=== PATIENT | male | born 1955 | race Caucasian/White ===

== ENCOUNTER 2016-06-25 06:49 | Day surgery (SDC) | payer OTHER ==
[2016-06-20 16:55] LABS: BASOPHILS 0.4 %; BASOPHILS ABSOLUTE 0.04 10/3/uL (0.0-0.16); EOSINOPHILS 2.6 %; EOSINOPHILS ABSOLUTE 0.29 10/3/uL (0.0-0.53); HEMATOCRIT 43.9 % (40.0-51.0); HEMOGLOBIN 15.1 g/dL (13.6-17.8); IMMATURE GRANULOCYTES 0.4 %; IMMATURE GRANULOCYTES ABSOLUTE 0.04 10/3/uL (0.0-0.11); LYMPHOCYTES 27.2 %; LYMPHOCYTES ABSOLUTE 2.99 10/3/uL (0.67-4.30); MEAN CORPUS HGB CONC 34.4 g/dL (32.0-36.0); MEAN CORPUSCULAR HEMOGLOB 29.4 pg (26.0-34.0); MEAN CORPUSCULAR VOLUME 85.6 fL (80-100); MEAN PLATELET VOLUME 10.5 fL (9.2-13.0); MONOCYTES 5.6 %; MONOCYTES ABSOLUTE 0.61 10/3/uL (0.21-1.20); NEUTROPHILS 63.8 %; NEUTROPHILS ABSOLUTE 7.01 10/3/uL (2.02-8.40); PLATELET COUNT 285 10/3/uL (150-400); RBC DISTRIBUTION WIDTH 13.5 % (12.0-16.0); RED CELL COUNT 5.13 10/6/uL (4.7-6.1)
[2016-06-20 17:00] LABS: MANUAL DIFF NO %
[2016-06-20 17:01] LABS: A/G RATIO 1.2 (0.7-1.9); ALBUMIN 4.2 G/DL (3.5-5.0); ALKALINE PHOSPHATASE 70 U/L (45-117); CALCIUM, SERUM 8.5 MG/DL (8.5-10.4); CHLORIDE, SERUM 105 MMOL/L (96-112); CO2 (CARBON DIOXIDE) 28 MMOL/L (24-34); CREATININE 0.93 MG/DL (0.70-1.30); GFR AFRICAN AMERICAN 104 ML/MIN (>=60); GFR NON AFRICAN AMERICAN 90 ML/MIN (>=60); POTASSIUM, SERUM 4.6 MMOL/L (3.5-5.3); SGOT(AST) 24 U/L (5-40); SGPT(ALT) 57 U/L (5-65); SODIUM, SERUM 141 MMOL/L (135-148); TOTAL BILIRUBIN 0.3 MG/DL (0-1.2); TOTAL PROTEIN 7.7 G/DL (6.0-8.5)
[2016-06-20 17:05] LABS: BUN (BLOOD UREA NITROGEN) 10 MG/DL (6-23); GLOBULIN 3.5 G/DL (2.5-4.1); GLUCOSE, SERUM 98 MG/DL (60-99)
--- NOTE | ~2016-06-25 | OP ---
Record Of Operation [facility] [address] [place]. [address] NAME: THANIA CARABALLO : 59 STATUS : [facility]#: [id number] AGE: 61 ADM/REG DATE : 06/25/16 MR#: [id number] REPORT SERV DATE: 06/25/16 DICTATED BY: MARKIE VO DATE: 06/25/16 REPORT STATUS : Draft TRANSCRIBED BY: MODL DATE: 06/25/16 DATE OF PROCEDURE: 06/25/2016 PREOPERATIVE DIAGNOSIS: Left hydrocele. POSTOPERATIVE DIAGNOSIS: Left hydrocele. OPERATIVE PROCEDURE: Left hydrocelectomy. ANESTHESIA: General inhalation. SURGEON: Dr. Vo. ESTIMATED BLOOD LOSS: About 15 to 20 mL. SPECIMENS: 1. Hydrocele sac. 2. Cath urine for culture and sensitivity. DRAINS: 1. A 1 #16 Coude Boone catheter. 2. [id number] Marcellus drains. IMMEDIATE POSTOP: Satisfactory. DESCRIPTION OF PROCEDURE: The patient was brought in to the surgery suite, given general inhalational anesthetic in the lithotomy position. Perineum and genitalia were prepped and draped in a sterile fashion. The patient was placed on the operating table in supine position. Scrotum and penis were prepped and draped in a sterile fashion. A #16 Coude Boone catheter was passed per urethra into the bladder. A specimen of balloon inflated specimen of clear yellow urine was obtained and submitted to culture and sensitivity. The catheter was attached to drainage bag. At this point, a left hemiscrotal incision was made from superior to inferior. The incision was carried down with Bovie cautery through the scrotal wall. The hydrocele sac and spermatic cord were then dissected free from the scrotum using a combination of blunt and sharp dissection. Bovie cautery were indicated. Hemostasis within the scrotal wall was obtained with electrocautery. Hydrocele sac was then opened and drained of about 600 mL clear yellow fluid. The sac was then opened along its long axis. Testicle was inspected and noted to be viable without any abnormalities. Excess hydrocele sac was then removed using the Bovie cautery. The redundant sac was then "bottle necked" and the posterior portion of the spermatic cord sutured loosely into place in that position so as not to compromise the spermatic cord. The spermatic cord was then infiltrated with about 8 mL of 0.25% Marcaine without epinephrine. The scrotum was then copiously irrigated as was the spermatic cord and testis. Hemostasis was satisfactory. At this point, 2 [id number] Marcellus drains were brought out through a dependent stab incision of the left scrotal wall. These were sutured into place usually loosely with a 2-0 silk suture. Testis and spermatic cord were then placed back and the left hemiscrotum in Record Of Operation [address] [address] NAME: CARABALLOTHANIA Canela : 59 STATUS : [facility] PAT#: [id number] AGE: 61 ADM/REG DATE : 06/25/16 MR#: [id number] REPORT SERV DATE: 06/25/16 DICTATED BY: MARKIE VO DATE: 06/25/16 REPORT STATUS : Draft TRANSCRIBED BY: LASHAY DATE: 06/25/16 normal anatomic position. The wound was closed in layers. Sponge and instrument counts were correct, and the patient was, at this point, awaken and sent to recovery room in satisfactory condition. MS/LASHAY Markie Vo M.D. / [id number] CC: Marysol Hobson NP
[~2016-06-25 06:49] MED LIST: AMIT50 PO; ATEN25 PO; GLUCPH PO; NORV10 PO; PRAVACHOL40 MG PO; PRIN20 PO; TRICOR145 PO; Z300 PO
== END 2016-06-25 14:34 | disposition home or self-care (01) ==
LOC: SDC 06:49
PROVIDERS: Urology
PROC: 0VB70ZZ Excision of Left Tunica Vaginalis, Open Approach (ICD-10-PCS; principal; 2016-06-25 08:45)
DX: N43.3 Hydrocele, unspecified (principal); I10 Essential (primary) hypertension; M19.90 Unspecified osteoarthritis, unspecified site; M10.9 Gout, unspecified; E11.9 Type 2 diabetes mellitus without complications; E66.01 Morbid (severe) obesity due to excess calories; Z68.39 Body mass index [BMI] 39.0-39.9, adult; Z79.84 Long term (current) use of oral hypoglycemic drugs; Z79.899 Other long term (current) drug therapy; Z86.12 Personal history of poliomyelitis; Z87.828 Personal history of other (healed) physical injury and trauma; Z98.890 Other specified postprocedural states
CPT/HCPCS: 71020; 80053; 82962; 85025; 87086; 88302; 93005; A9270-GY; J0330; J0360; J0690; J2250; J2270; J2370; J2405; J3010